=== PATIENT | male | born 1980 | race Caucasian/White ===

== ENCOUNTER 2025-05-13 09:01 | Emergency (ER) | payer OTHER, SELFPAY ==
--- OUTSIDE RECORDS SUMMARY | 2025-05-13 09:06 | XMS_ITS | Clinical Summary ---
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 Gender Identity Not on file Sexual Orientation Not on file Plan of Treatment Not on file Insurance [employer] Member Subscriber Plan / Payer (Ef fective 2020-Present) Name:Filiberto Mustafa Member ID:-[id number] Relation to Subscriber:Employee Name:[employer] Subscriber ID:-[id number] Date of :2001 (Home) Address: [address] [place] [address] Payer ID:Not on file Group ID:Not on file Type:Not on file Address: [address] [employer] [facility] Care Teams Maintenance Painter Apprentice Relationship Specialty [place] [address] [place] [address] PCP - General Family Practice 11/20/13
--- OUTSIDE RECORDS SUMMARY | 2025-05-13 09:06 | XMS_ITS | Clinical Summary ---
Author Organization [place] Address [address] [place] [address]. 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 User may not have seen previous data. Pulse 98 06/02/2018 6:17 PM CDT Temperature 36.7 C (98.1 F) 06/02/2018 6:05 PM CDT Respiratory Rate 20 06/02/2018 6:05 PM CDT Oxygen Saturation 98% 06/02/2018 7:4 5 PM CDT Inhaled Oxygen Concentration - - Weight - - Height - - Body Mass Index - - Plan of Treatment Not on file Insurance [facility] Care Teams Thermal Spray Operator Relationship Specialty Start Date End Date Clinic, [facility] [address] [place] [id number] PCP - General 06/02/18
[2025-05-13 09:13] VITALS: BP 172/124; PULSE 100; RESP 18; TEMP 37.1; O2SAT 95; BMI 38.1
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
[2025-05-13] MEDS: TETANUS/DIPHTH/PERTUSSIS 0.5 ML SYRINGE IM (10:23)
[2025-05-13 11:10] VITALS: BP 218/146; PULSE 104; RESP 22; O2SAT 96
[2025-05-13 11:20] VITALS: BP 220/110
[2025-05-13] MEDS: METOPROLOL SUCCINATE (XL) 50 MG TAB PO (11:30)
== END 2025-05-13 11:35 | disposition home or self-care (01) ==
PROVIDERS: Emergency Provider Family Medicine; PCP Family Medicine
DX: M25.562 Pain in left knee (principal); M54.6 Pain in thoracic spine; I10 Essential (primary) hypertension; V43.62XA Car passenger injured in collision with other type car in traffic accident, initial encounter; Z23 Encounter for immunization
CPT/HCPCS: 70450; 71250; 72125; 73562; 73590; 90471; 90715; 99284; A9270